=== PATIENT | female | born 1955 ===

== ENCOUNTER 2022-11-15 22:58 | Observation (INO) | payer MEDICARE, OTHER ==
[~2022-11-15 22:58] MED LIST: Iopamidol-370 76% 500 ML MDV (1 ML CHARGE) ONE
[2022-11-15 23:34] LABS: #Basophils 0.1 thou/uL (0.0-0.2); #Eosinphils 0.1 thou/uL (0.0-0.7); #Lymphocytes 3.7 thou/uL (1.20-3.40); #Monocytes 0.5 thou/uL (0.11-0.59); #Neutrophils 3.3 thou/uL (1.40-6.50); %Basophils 0.8 % (0.0-1.0); %Eosinophils 1.7 % (0.0-10.0); %Monocytes 6.8 % (0.0-10.0); %Neutrophils 42.7 % (42.0-75.0); Hemoglobin 14.3 g/dL (12.0-16.0); Mean Corpuscular HGB CONC 33.6 g/dL (32.0-36.0); Mean Corpuscular Volume 86.3 fl (78.0-98.0); Mean Platelet Volume 8.8 fL (7.4-10.4); Platelet Count 187 10x3/uL (130-400); Red Blood Cell (RBC) Count 4.93 mill/uL (4.20-5.40); White Blood Cell (WBC) Count 7.7 10x3/uL (4.8-10.8)
[2022-11-15] MEDS ORDERED: Aspirin Chewable 81 MG TAB ONE (23:37)
[2022-11-15 23:53] LABS: ALT (SGPT) 12 U/L (8-55); AST (SGOT) 14 U/L (5-34); Acetaminophen Less than 10.0 mcg/mL (10.0-30.0); Albumin 3.7 g/dL (3.4-4.8); Alcohol Less than 10 mg/dL (Less than 10); Alkaline Phosphatase 62 U/L (40-110); Anion Gap 16 mmol/L (10-20); BUN (Urea Nitrogen) 8 mg/dL (9.8-20.1); Bilirubin, Total 0.4 mg/dL (0.2-1.2); Calc. Creatinine Clearance 0 mL/min (70-130); Calcium 8.5 mg/dL (7.8-10.44); Carbon Dioxide 22 mmol/L (23-31); Chloride 106 mmol/L (98-107); Estimated GFR 64; Globulin 2.8 g/dL (2.4-3.5); Glucose 112 mg/dL (80-115); Protein, Total 6.5 g/dL (5.8-8.1); Salicylate Less than 8.0 mg/dL (15.0-30.0); Sodium 140 mmol/L (136-145)
[2022-11-16 01:32] LABS: Amphetamine Not Detected (NotDetected); Barbiturates Screen Detected (NotDetected); Benzodiazepine Screen Not Detected (NotDetected); Cocaine Metabolite Screen Not Detected (NotDetected); Methadone Not Detected (NotDetected); Methamphetamine Not Detected (NotDetected); Opiate Screen Not Detected (NotDetected); Oxycodone Screen Not Detected (NotDetected); Phencyclidine (PCP) Not Detected (NotDetected); THC/Cannabinoid Screen Not Detected (NotDetected); Tricyclic Screen Not Detected (NotDetected)
[2022-11-16 01:33] LABS: Bacteria/HPF None Seen HPF (None Seen); Bilirubin Negative (Negative); Blood, Urine Trace (Negative); Clarity Clear (Clear); Glucose, Urine (Dipstick) Normal (Negative); Ketone, Urine Negative (Negative); Leukocyte Negative Leu/uL (Negative); Nitrite Negative (Negative); Protein, Urine (Dipstick) 10 mg/dL (Neg-Trace); Urobilinogen Normal mg/dL (Less than 2); WBC/HPF 0-3 HPF (0-3); pH, Urine 5.5 (5.0-9.0)
[2022-11-16 01:34] LABS: Specific Gravity, Urine Greater than 1.060 (1.002-1.036)
[2022-11-16] MEDS ORDERED: Ondansetron ODT 4 MG TAB PO PRN (02:39)
[2022-11-16] MEDS ORDERED: Acetaminophen 325 MG TAB PO PRN (02:39)
[2022-11-16] MEDS ORDERED: hydrALAZINE 20 MG/ML VIAL SLOW IVP PRN ×2 (02:39→10:46)
[2022-11-16 04:10] VITALS: BMI 39.2
[2022-11-16 06:11] LABS: #Basophils 0.1 thou/uL (0.0-0.2); #Eosinphils 0.1 thou/uL (0.0-0.7); #Lymphocytes 3.3 thou/uL (1.20-3.40); #Monocytes 0.5 thou/uL (0.11-0.59); #Neutrophils 4.5 thou/uL (1.40-6.50); %Basophils 0.8 % (0.0-1.0); %Eosinophils 0.9 % (0.0-10.0); %Lymphocytes 39.1 % (21.0-51.0); %Monocytes 5.5 % (0.0-10.0); %Neutrophils 53.8 % (42.0-75.0); Hemoglobin 13.1 g/dL (12.0-16.0); Mean Corpuscular HGB CONC 32.2 g/dL (32.0-36.0); Mean Corpuscular Hemoglobin 27.9 pg (27.0-31.0); Mean Corpuscular Volume 86.5 fl (78.0-98.0); Platelet Count 161 10x3/uL (130-400); RBC Distribution Width 13.2 % (11.5-14.5); Red Blood Cell (RBC) Count 4.71 mill/uL (4.20-5.40); White Blood Cell (WBC) Count 8.4 10x3/uL (4.8-10.8)
[2022-11-16 06:13] LABS: Hemoglobin A1c 5.1 % (4.0-6.0)
[2022-11-16 06:31] LABS: Anion Gap 15 mmol/L (10-20); BUN (Urea Nitrogen) 8 mg/dL (9.8-20.1); Calc. Creatinine Clearance 97 mL/min (70-130); Calcium 8.8 mg/dL (7.8-10.44); Carbon Dioxide 23 mmol/L (23-31); Cardiac Risk 5.1 (Less than 4.5); Chloride 106 mmol/L (98-107); Cholesterol 225 mg/dl (< 200 Desired); Estimated GFR 69; Glucose 104 mg/dL (80-115); HDL Cholesterol 44 mg/dL (>60 Neg Risk); LDL Cholesterol, Calculated 131 mg/dL; Sodium 140 mmol/L (136-145); Triglycerides 249 mg/dL (Less than 150)
[2022-11-16] MEDS: Aspirin 81 mg Enteric Coated Tablet PO SCH (08:31)
[2022-11-16] MEDS ORDERED: hydrOXYzine 25 MG TAB PO PRN (11:55)
[2022-11-16] MEDS: Ondansetron PF 4 MG/2 ML Vial IVP PRN (20:24)
[2022-11-16] MEDS ORDERED: Atorvastatin Calcium 40 MG TAB PO SCH (21:00)
[2022-11-16] MEDS: Atorvastatin Calcium 40 MG TAB PO SCH (21:07)
[2022-11-17 07:46] LABS: #Lymphocytes 2.1 thou/uL (1.20-3.40); #Monocytes 0.4 thou/uL (0.11-0.59); #Neutrophils 5.7 thou/uL (1.40-6.50); %Eosinophils 0.5 % (0.0-10.0); %Lymphocytes 25.3 % (21.0-51.0); %Monocytes 4.7 % (0.0-10.0); %Neutrophils 69.5 % (42.0-75.0); Hemoglobin 13.3 g/dL (12.0-16.0); Mean Corpuscular HGB CONC 32.3 g/dL (32.0-36.0); Mean Corpuscular Hemoglobin 27.9 pg (27.0-31.0); Mean Corpuscular Volume 86.6 fl (78.0-98.0); Mean Platelet Volume 8.9 fL (7.4-10.4); Platelet Count 183 10x3/uL (130-400); RBC Distribution Width 13.1 % (11.5-14.5); Red Blood Cell (RBC) Count 4.77 mill/uL (4.20-5.40); White Blood Cell (WBC) Count 8.2 10x3/uL (4.8-10.8)
[2022-11-17] MEDS ORDERED: Promethazine HCl 12.5 MG in Sodium Chloride 0.9% 50 ML IVPB PRN (08:14)
[2022-11-17 08:18] LABS: Anion Gap 14 mmol/L (10-20); BUN (Urea Nitrogen) 8 mg/dL (9.8-20.1); Calc. Creatinine Clearance 96 mL/min (70-130); Calcium 8.8 mg/dL (7.8-10.44); Carbon Dioxide 23 mmol/L (23-31); Chloride 106 mmol/L (98-107); Estimated GFR 68; Glucose 124 mg/dL (80-115); Sodium 139 mmol/L (136-145)
[2022-11-17] MEDS: FLUoxetine HCl 10 MG CAP PO SCH (12:35)
[2022-11-17] MEDS: Aspirin 81 mg Enteric Coated Tablet PO SCH (12:35)
[2022-11-17] MEDS: Hydrochlorothiazide 25 MG TAB PO SCH (12:36)
[2022-11-17] MEDS: Losartan 25 MG TAB PO SCH (12:36)
[2022-11-17] MEDS: Ondansetron PF 4 MG/2 ML Vial IVP PRN (13:23)
[2022-11-17] MEDS: Promethazine HCl 25 MG in Sodium Chloride 0.9% 50 ML IVPB PRN ×2 (17:21→23:41)
[2022-11-17] MEDS: Lactated Ringer's 1,000 ML IV SCH (17:21)
[2022-11-17] MEDS: Atorvastatin Calcium 40 MG TAB PO SCH (19:53)
[2022-11-18 05:44] LABS: #Eosinphils 0.1 thou/uL (0.0-0.7); #Lymphocytes 3.5 thou/uL (1.20-3.40); #Monocytes 0.5 thou/uL (0.11-0.59); #Neutrophils 3.8 thou/uL (1.40-6.50); %Basophils 0.3 % (0.0-1.0); %Eosinophils 0.7 % (0.0-10.0); %Lymphocytes 43.7 % (21.0-51.0); %Monocytes 6.5 % (0.0-10.0); %Neutrophils 48.8 % (42.0-75.0); Hemoglobin 12.6 g/dL (12.0-16.0); Mean Corpuscular HGB CONC 33.6 g/dL (32.0-36.0); Mean Corpuscular Hemoglobin 28.9 pg (27.0-31.0); Mean Corpuscular Volume 85.8 fl (78.0-98.0); Mean Platelet Volume 9.5 fL (7.4-10.4); Platelet Count 164 10x3/uL (130-400); RBC Distribution Width 13.3 % (11.5-14.5); Red Blood Cell (RBC) Count 4.38 mill/uL (4.20-5.40); White Blood Cell (WBC) Count 7.9 10x3/uL (4.8-10.8)
[2022-11-18 06:02] LABS: ALT (SGPT) 10 U/L (8-55); AST (SGOT) 14 U/L (5-34); Albumin 3.6 g/dL (3.4-4.8); Alkaline Phosphatase 53 U/L (40-110); Anion Gap 14 mmol/L (10-20); BUN (Urea Nitrogen) 8 mg/dL (9.8-20.1); Bilirubin, Direct 0.2 mg/dL (0.1-0.3); Bilirubin, Total 0.5 mg/dL (0.2-1.2); Calc. Creatinine Clearance 97 mL/min (70-130); Calcium 8.7 mg/dL (7.8-10.44); Carbon Dioxide 25 mmol/L (23-31); Chloride 108 mmol/L (98-107); Estimated GFR 69; Glucose 89 mg/dL (80-115); Potassium 3.5 mmol/L (3.5-5.1); Protein, Total 6.2 g/dL (5.8-8.1); Sodium 143 mmol/L (136-145)
[2022-11-18 08:56] VITALS: TEMP 97.8
[2022-11-18] MEDS: Losartan 25 MG TAB PO SCH (09:13)
[2022-11-18] MEDS: FLUoxetine HCl 10 MG CAP PO SCH (09:36)
[2022-11-18] MEDS: Aspirin 81 mg Enteric Coated Tablet PO SCH (09:36)
[2022-11-18] MEDS: Hydrochlorothiazide 25 MG TAB PO SCH (09:36)
[2022-11-18] MEDS: Lactated Ringer's 1,000 ML IV SCH (13:09)
[2022-11-18 13:11] VITALS: BP 142/68
== END 2022-11-18 19:00 | disposition home or self-care (01) ==
LOC: ERS 22:58 → 2SW 11-16 02:07
PROVIDERS: ADMIT Internal Medicine; ATTEND Internal Medicine
DX: R47.1 Dysarthria and anarthria (principal); R29.810 Facial weakness; R53.1 Weakness; G25.0 Essential tremor; G43.909 Migraine, unspecified, not intractable, without status migrainosus; I10 Essential (primary) hypertension; E78.5 Hyperlipidemia, unspecified; K21.9 Gastro-esophageal reflux disease without esophagitis; I25.10 Atherosclerotic heart disease of native coronary artery without angina pectoris; F40.240 Claustrophobia; K80.20 Calculus of gallbladder without cholecystitis without obstruction; R11.2 Nausea with vomiting, unspecified; K76.0 Fatty (change of) liver, not elsewhere classified; Z66 Do not resuscitate; Z86.718 Personal history of other venous thrombosis and embolism; Z86.73 Personal history of transient ischemic attack (TIA), and cerebral infarction without residual deficits; Z79.899 Other long term (current) drug therapy; Z88.1 Allergy status to other antibiotic agents; Z88.5 Allergy status to narcotic agent; Z88.8 Allergy status to other drugs, medicaments and biological substances
CPT/HCPCS: 36415; 70450; 70496; 70498; 76705; 80048; 80053; 80061; 80076; 80306; 80307; 81003; 81015; 83036; 83605; 83735; 84443; 84484; 85025; 93005; 93306; 96374; 96375; 96376; G0378; J2405; J2550; J7120; Q0162; Q9967